=== PATIENT | female | born 1970 | race Hispanic/Latino ===

== ENCOUNTER 2017-05-07 12:14 | Emergency (ER) | payer OTHER ==
[2017-05-07 13:13] LABS: Basophils % (Auto) 0.6 % (0.0-1.8); Eosinophils % (Auto) 0.4 % (0.0-4.3); Hemoglobin 13.9 gm/dl (10.1-14.3); Mean Corpuscular HGB Conc 34 % (30-34); Mean Corpuscular Hemoglobin 32 pg (28-32); Mean Corpuscular Volume 94 fl (79-97); Platelet Count 188 K/mm3 (140-440); Red Blood Count 4.37 M/mm3 (3.65-5.03); Red Cell Distribution Width 13.1 % (13.2-15.2); White Blood Count 14.7 K/mm3 (4.5-11.0)
[2017-05-07 13:33] LABS: Anion Gap 20 mmol/L; BUN/Creatinine Ratio 13; Blood Urea Nitrogen 8 mg/dL (7-17); Calcium 9.1 mg/dL (8.4-10.2); Carbon Dioxide 24 mmol/L (22-30); Chloride 99.5 mmol/L (98-107); Glucose 95 mg/dL (65-100); Potassium 4.1 mmol/L (3.6-5.0); Sodium 139 mmol/L (137-145)
[2017-05-07 13:34] LABS: Urine Drugs of Abuse Note Disclamer
[2017-05-07 13:43] LABS: Bilirubin,Urine NEG (Negative); Blood,Urine NEG (Negative); Ketones,Urine NEG (Negative); Leukocyte Esterase,Urine NEG (Negative); Mucus,Urine FEW /HPF; Nitrite,Urine NEG (Negative); Protein,Urine <15 mg/dL mg/dL (Negative)
[2017-05-07] MEDS ORDERED: ASPIRIN PO ONE (15:05)
[2017-05-07] MEDS ORDERED: NITRO-BID 2% TP ONE (15:05)
--- NOTE | 2017-05-07 15:15 | Emergency Department Report ---
HPI - General Chief Complaint: Chest Pain Time Seen by Provider: 05/07/17 14:57 - HPI HPI: Room 18 The patient is a 46-year-old female presenting with a chief complaint of chest pain. Patient states for 2 months she's had intermittent substernal chest pain associated with shortness of breath, nausea and diaphoresis. Patient also states she's had a left upper extremity paresthesia with her chest pain. Patient doesn't at the crack cocaine use and states she last used last night. The patient states her last stress test occurred approximately one year ago but she has never had a cardiac catheterization Location: Chest, see above Duration: 2 months Quality: Pain Severity: Currently 0/10 Modifying factors: [see above] Context: [see above] Mode of transportation: [not driving] ED Past Medical Hx - Past Medical History Previous Medical History?: Yes Hx of Cancer: Yes (Cervical) Hx Headaches / Migraines: Yes Hx Psychiatric Treatment: Yes (Domestic PTSD) Additional medical history: Hepatits C, Memory loss - Surgical History Past Surgical History?: Yes Hx Appendectomy: Yes Additional Surgical History: Partial hysterectomy, Back surgery - Family History Family history: no significant - Social History Smoking Status: Current Every Day Smoker (1 pack per day) Substance Use Type: Cocaine, Marijuana, Non Opiate Pain ED Review of Systems ROS: Stated complaint: CHEST PAIN Other details as noted in HPI Constitutional: diaphoresis Respiratory: shortness of breath Cardiovascular: chest pain Gastrointestinal: nausea. denies: vomiting Neurological: paresthesias Physical Exam - Physical Exam Vital Signs: Vital Signs 05/07/17 12:28 Temperature 97.9 F Pulse Rate 115 H Respiratory 22 Rate Blood Pressure 135/86 O2 Sat by Pulse 97 Oximetry Physical Exam: GENERAL: The patient is well-developed well-nourished female sitting on stretcher not appearing to be in acute distress. [] HEENT: Normocephalic. Atraumatic. Extraocular motions are intact. Patient has moist mucous membranes. NECK: Supple. Trachea midline CHEST/LUNGS: Clear to auscultation. There is no respiratory distress noted. HEART/CARDIOVASCULAR: Regular. There is no tachycardia. There is no gallop rub or murmur. ABDOMEN: Abdomen is soft, nontender. Patient has normal bowel sounds. There is no abdominal distention. SKIN: There is no rash. There is no edema. There is no diaphoresis. NEURO: The patient is awake, alert, and oriented. The patient is cooperative. The patient has normal speech MUSCULOSKELETAL: There is no evidence of acute injury. ED Course Vital Signs 05/07/17 12:28 Temperature 97.9 F Pulse Rate 115 H Respiratory 22 Rate Blood Pressure 135/86 O2 Sat by Pulse 97 Oximetry ED Medical Decision Making - Lab Data Result diagrams: 05/07/17 12:55 05/07/17 12:55 Laboratory Last Values WBC 14.7 K/mm3 (4.5-11.0) H 05/07/17 12:55 RBC 4.37 M/mm3 (3.65-5.03) 05/07/17 12:55 Hgb 13.9 gm/dl (10.1-14.3) 05/07/17 12:55 Hct 41.0 % (30.3-42.9) 05/07/17 12:55 MCV 94 fl (79-97) 05/07/17 12:55 MCH 32 pg (28-32) 05/07/17 12:55 MCHC 34 % (30-34) 05/07/17 12:55 RDW 13.1 % (13.2-15.2) L 05/07/17 12:55 Plt Count 188 K/mm3 (140-440) 05/07/17 12:55 Lymph % (Auto) 19.6 % (13.4-35.0) 05/07/17 12:55 [place] % (Auto) 5.0 % (0.0-7.3) 05/07/17 12:55 Eos % (Auto) 0.4 % (0.0-4.3) 05/07/17 12:55 Baso % (Auto) 0.6 % (0.0-1.8) 05/07/17 12:55 Lymph # 2.9 K/mm3 (1.2-5.4) 05/07/17 12:55 [place] # 0.7 K/mm3 (0.0-0.8) 05/07/17 12:55 Eos # 0.1 K/mm3 (0.0-0.4) 05/07/17 12:55 Baso # 0.1 K/mm3 (0.0-0.1) 05/07/17 12:55 Seg Neutrophils % 74.4 % (40.0-70.0) H 05/07/17 12:55 Seg Neutrophils # 10.9 K/mm3 (1.8-7.7) H 05/07/17 12:55 Sodium 139 mmol/L (137-145) 05/07/17 12:55 Potassium 4.1 mmol/L (3.6-5.0) 05/07/17 12:55 Chloride 99.5 mmol/L (98-107) 05/07/17 12:55 Carbon Dioxide 24 mmol/L (22-30) 05/07/17 12:55 Anion Gap 20 mmol/L 05/07/17 12:55 BUN 8 mg/dL (7-17) 05/07/17 12:55 Creatinine 0.6 mg/dL (0.7-1.2) L 05/07/17 12:55 Estimated GFR > 60 ml/min 05/07/17 12:55 BUN/Creatinine Ratio 13 % 05/07/17 12:55 Glucose 95 mg/dL (65-100) 05/07/17 12:55 Calcium 9.1 mg/dL (8.4-10.2) 05/07/17 12:55 Troponin T < 0.010 ng/mL (0.00-0.029) 05/07/17 12:55 Urine Color Yellow (Yellow) 05/07/17 13:00 Urine Turbidity Clear (Clear) 05/07/17 13:00 Urine pH 6.0 (5.0-7.0) 05/07/17 13:00 Ur Specific Perr[place] 1.015 (1.003-1.030) 05/07/17 13:00 Urine Protein <15 mg/dl mg/dL (Negative) 05/07/17 13:00 Urine Glucose (UA) Neg mg/dL (Negative) 05/07/17 13:00 Urine Ketones Neg mg/dL (Negative) 05/07/17 13:00 Urine Blood Neg (Negative) 05/07/17 13:00 Urine Nitrite Neg (Negative) 05/07/17 13:00 Urine Bilirubin Neg (Negative) 05/07/17 13:00 Urine Urobilinogen 2.0 mg/dL (<2.0) 05/07/17 13:00 Ur Leukocyte Esterase Neg (Negative) 05/07/17 13:00 Urine WBC (Auto) 1.0 /HPF (0.0-6.0) 05/07/17 13:00 Urine RBC (Auto) 6.0 /HPF (0.0-6.0) 05/07/17 13:00 U Epithel Cells (Auto) 1.0 /HPF (0-13.0) 05/07/17 13:00 Urine Mucus Few /HPF 05/07/17 13:00 Urine Opiates Screen Presumptive negative 05/07/17 13:00 Urine Methadone Screen Presumptive negative 05/07/17 13:00 Ur Barbiturates Screen Presumptive negative 05/07/17 13:00 Ur Phencyclidine Scrn Presumptive negative 05/07/17 13:00 Ur Amphetamines Screen Presumptive negative 05/07/17 13:00 U Benzodiazepines Scrn Presumptive negative 05/07/17 13:00 Urine Cocaine Screen Presumptive negative 05/07/17 13:00 U Marijuana (THC) Screen Presumptive negative 05/07/17 13:00 Drugs of Abuse Note Disclamer 05/07/17 13:00 - EKG Data -: EKG Interpreted by Me EKG shows normal: sinus rhythm Rate: normal - EKG Data When compared to previous EKG there are: previous EKG unavailable Interpretation: nonspecific ST-T wave migdalia (T-wave inversion in lead V2) - Radiology Data Radiology results: image reviewed (chest x-ray) interpreted by me: Chest x-ray-no focal infiltrates, no pneumothorax - Differential Diagnosis ACS, Prinzmetal's angina, GERD, pericarditis Critical care attestation.: If time is entered above; I have spent that time in minutes in the direct care of this critically ill patient, excluding procedure time. ED Disposition Clinical Impression: Chest pain Disposition: - OP ADMIT IP TO THIS HOSP Is pt being admited?: Yes Does the pt Need Aspirin: Yes Condition: Fair Instructions: Chest Pain (ED) Referrals: SAMANTHA CH MD [Primary Care Provider] - 3-5 Days Time of Disposition: 15:21 (hospitalist notified (Dr Stafford))
[2017-05-07] MEDS ORDERED: LEVAQUIN 750MG/150ML 750 MG/150 ML BAG IV ONE (15:25)
--- NOTE | 2017-05-07 15:27 | History and Physical Report ---
History of Present Illness Chief complaint: My chest hurts History of present illness: 46 YO Female presents to ED for evaluation. Pt complains of chest pain. Patient states for 2 months she has experienced substernal chest pain associated with shortness of breath, nausea and diaphoresis. Patient also states she's had a left upper extremity paresthesia with her chest pain. Pt seen and evaluated in ED. Pt underwent cardiac enzyme, ekg, and telemetry evaluation which was not indicative of cardiac ischemia. D dimer was also normal. Pt medically optimized and back to usual state of health. Pt discharged home and instructed to f/u with pcp 1wk. Past History Past Medical History: cancer, hepatitis, migraines Past Surgical History: appendectomy, hysterectomy, Other (back surgery) Social history: single, smoking, other (cocaine abuse) Family history: no significant family history (reviewed) Medications and Allergies Allergies Allergy/AdvReac Type Severity Reaction Status Date / Time Penicillins Allergy Unknown Verified 05/07/17 12:28 Home Medications Medication Instructions Recorded Confirmed Last Taken Type Ciprofloxacin [Ciprofloxacin ORAL 500 mg PO Q12H #14 ml 05/07/17 Unknown Rx LIQ] Active Meds: Active Medications Levofloxacin/Dextrose (Levaquin 750mg/150ml) 750 mg in 150 mls @ 100 mls/hr IV ONCE ONE Stop: 05/07/17 16:54 Review of Systems Constitutional: no weight loss, no weight gain, no fever, no chills Ears, nose, mouth and throat: no ear pain, no ear discharge, no tinnitis, no decreased hearing, no nose pain Breasts: no change in shape, no swelling, no mass Cardiovascular: chest pain, no orthopnea, no palpitations, no rapid/irregular heart beat, no edema, no syncope, no lightheadedness, no shortness of breath Respiratory: no cough, no cough with sputum, no excessive sputum, no hemoptysis , no shortness of breath Gastrointestinal: no nausea, no vomiting, no diarrhea Genitourinary Female: no pelvic pain, no flank pain, no menorrhagia, no dysuria Rectal: no pain, no incontinence, no bleeding Musculoskeletal: no neck stiffness, no neck pain, no shooting arm pain Integumentary: no rash, no pruritis, no redness, no sores, no wounds Neurological: no head injury, no transient paralysis, no paralysis, no weakness , no parathesias, no numbness, no tingling, no seizures Psychiatric: no anxiety, no memory loss, no change in sleep habits, no sleep disturbances, no insomnia, no hypersomnia, no change in appetite Endocrine: no cold intolerance, no heat intolerance, no polyphagia, no excessive thirst, no polydipsia, no polyuria Hematologic/Lymphatic: no easy bruising, no easy bleeding Allergic/Immunologic: no urticaria, no allergic rhinitis, no wheezing Exam - Constitutional Vitals: Temp Pulse Resp BP Pulse Ox 97.9 F 77 22 135/86 97 05/07/17 12:28 05/07/17 15:18 05/07/17 12:28 05/07/17 12:28 05/07/17 12:28 General appearance: Present: no acute distress, well-nourished - EENT Eyes: Present: PERRL ENT: hearing intact, clear oral mucosa - Neck Neck: Present: supple, normal ROM - Respiratory Respiratory effort: normal Respiratory: bilateral: CTA - Cardiovascular Heart Sounds: Present: S1 & S2. Absent: rub, click - Extremities Extremities: pulses symmetrical, No edema Peripheral Pulses: within normal limits - Abdominal General gastrointestinal: Present: soft, non-tender, non-distended, normal bowel sounds Female genitourinary: Present: normal - Integumentary Integumentary: Present: clear, warm, dry - Musculoskeletal Musculoskeletal: gait normal, strength equal bilaterally - Psychiatric Psychiatric: appropriate mood/affect, intact judgment & insight - Neurologic Neurologic: CNII-XII intact, moves all extremities Results - Labs CBC & Chem 7: 05/07/17 12:55 05/07/17 12:55 Labs: Abnormal lab results 05/07/17 05/07/17 Range/Units 12:55 12:55 WBC 14.7 H (4.5-11.0) K/mm3 RDW 13.1 L (13.2-15.2) % Seg Neutrophils % 74.4 H (40.0-70.0) % Seg Neutrophils # 10.9 H (1.8-7.7) K/mm3 Creatinine 0.6 L (0.7-1.2) mg/dL Assessment and Plan - Patient Problems (1) Atypical chest pain Status: Acute Plan to address problem: cardiac enzymes, ekg, telemetry, d dimer, ppi therapy, (2) GERD (gastroesophageal reflux disease) Status: Acute Plan to address problem: ppi therapy
--- NOTE | 2017-05-07 16:04 | XRay Report ---
FINAL REPORT EXAM: XR CHEST 1V AP HISTORY: chest pain TECHNIQUE: Upright portable AP chest x-ray Comparison: None FINDINGS: Heart size is upper limits normal. The lungs are mildly hyperlucent with flattened hemidiaphragms. There is ill-defined left lower lobe density which may represent focal infiltrate/consolidation. There are bilateral prominent nipple shadows. There is prominent bilateral anterior 1st rib ends and global osteopenia. IMPRESSION: Possible left lower lobe pneumonia. Chest x-ray appears advanced for the chronologic age of 46 years. There appears to be emphysema and global osteopenia. Recommend follow-up chest x-ray following treatment.
[2017-05-07] MEDS ORDERED: TYLENOL PO ONE (16:42)
[2017-05-07 17:58] VITALS: BP 118/70
== END 2017-05-07 17:57 | disposition admitted as inpatient to this hospital (09) ==
LOC: ED 12:14
DX: R07.2 Precordial pain (principal); R11.0 Nausea; G43.909 Migraine, unspecified, not intractable, without status migrainosus; Z85.41 Personal history of malignant neoplasm of cervix uteri; F12.10 Cannabis abuse, uncomplicated; F14.10 Cocaine abuse, uncomplicated; F17.200 Nicotine dependence, unspecified, uncomplicated; Z98.890 Other specified postprocedural states
CPT/HCPCS: 36415; 71010; 80048; 80307; 81001; 84484; 85025; 85379; 93005; 93010; 96365; 99285; J1956

== ENCOUNTER 2017-05-09 08:27 | Emergency (ER) | payer OTHER ==
--- NOTE | 2017-05-09 09:32 | Emergency Department Report ---
Chief Complaint: Psych Stated Complaint: MENTAL HEALTH EVALUATION Time Seen by Provider: 05/09/17 09:32 - HPI History of Present Illness: Patient here she appears very tearful and asked him to see and speak with someone to get some help. She said "I will elect to get my life back on track" . Patient is homeless and was seen here 2 days ago. She has a history of drug use. She says that she would like to get help with staying off drugs and also to get referrals where she can get a place to stay. Patient denies any suicide or homicide ideation. She specifically ask that she would like to go to the [place]. She says she is having pain 8 out of 10 from body ache and. Denies any cough, wheezing, shortness of breath, chest pain she says she's been walking around a lot. Pain is achy. No [id number] medication taken. Patient has been a sick PTSD, hepatitis C, migraine, memory loss. - ROS Review of Systems: All systems is negative unless stated in HPI above . - Exam Vital Signs: Vital Signs 05/09/17 09:07 Temperature 97.7 F Pulse Rate 102 H Respiratory 18 Rate Blood Pressure 105/70 O2 Sat by Pulse 98 Oximetry Physical Exam: Gen.: This is a 46-year-old female that looks disheveled but in no acute distress. Psych: Appears morose, denies suicide or homicide ideation. Denies seeing things or hearing things. Patient tearful MSE screening note: Focused history and physical exam performed. Due to findings the following was ordered: ED Medical Decision Making - Medical Decision Making MDM: Patient screened by provider in triage area. Appropriate protocol initiated and patient to be seen in main ED by ED Disposition for MSE Condition: Stable Referrals: PRIMARY CARE, [Primary Care Provider] - 3-5 Days
[2017-05-09 09:47] LABS: Basophils % (Auto) 0.5 % (0.0-1.8); Eosinophils % (Auto) 0.3 % (0.0-4.3); Hematocrit 42.6 % (30.3-42.9); Hemoglobin 14.1 gm/dl (10.1-14.3); Mean Corpuscular HGB Conc 33 % (30-34); Mean Corpuscular Hemoglobin 32 pg (28-32); Mean Corpuscular Volume 95 fl (79-97); Platelet Count 185 K/mm3 (140-440); Red Blood Count 4.47 M/mm3 (3.65-5.03); Red Cell Distribution Width 13.1 % (13.2-15.2); White Blood Count 11.4 K/mm3 (4.5-11.0)
[2017-05-09 10:03] LABS: Anion Gap 19 mmol/L; BUN/Creatinine Ratio 28; Blood Urea Nitrogen 14 mg/dL (7-17); Calcium 9.5 mg/dL (8.4-10.2); Carbon Dioxide 21 mmol/L (22-30); Chloride 105.9 mmol/L (98-107); Glucose 95 mg/dL (65-100); Potassium 4.2 mmol/L (3.6-5.0); Sodium 142 mmol/L (137-145)
[2017-05-09 11:53] LABS: Urine Drugs of Abuse Note Disclamer
[2017-05-09 12:03] LABS: Bilirubin,Urine NEG (Negative); Blood,Urine SM (Negative); Ketones,Urine 20 mg/dL (Negative); Leukocyte Esterase,Urine NEG (Negative); Mucus,Urine FEW /HPF; Nitrite,Urine NEG (Negative); Protein,Urine <15 mg/dL mg/dL (Negative)
[2017-05-09] MEDS ORDERED: TYLENOL PO ONE (20:56)
[2017-05-09] MEDS ORDERED: TORADOL IM ONE (20:56)
--- NOTE | 2017-05-09 21:13 | Emergency Department Report ---
ED General Adult HPI - General Chief complaint: Psych Stated complaint: MENTAL HEALTH EVALUATION Time Seen by Provider: 05/09/17 09:32 Source: patient, RN notes reviewed, old records reviewed Mode of arrival: Ambulatory Limitations: No Limitations - History of Present Illness Initial comments: This is a 46-year-old female who is previously unknown to this provider. Patient endorsed a past medical history of PTSD, hepatitis C, migraine. Patient is apparently homeless. Patient presents to the ER today, complaining to me of essential chest wall pain. She reports the pain has been there for 2 weeks, then she states has been there for 2 months. She denies vomiting, diaphoresis, she reports intermittent left upper extremity tingling. Denies recent aspirin ingestion, denies recent cocaine use, no pulmonary embolus or DVT risk factors. She is not homicidal, she is not suicidal. She reports no access to guns or firearms. To me, she makes no complaint of "wanted to get my life back on track." She does indicate that she would like to speak to a adult protective caseworker regarding her undomiciled situation. Denies cough and mucus production -: Gradual, week(s), month(s) Location: chest, left, upper extremity Radiation: extremity Quality: aching Consistency: intermittent Improves with: none Worsens with: none Associated Symptoms: chest pain. denies: cough, diaphoresis, fever/chills, loss of appetite, malaise, nausea/vomiting, rash, shortness of breath, syncope, weakness - Related Data Previous Rx's Medication Instructions Recorded Last Taken Type Ciprofloxacin [Ciprofloxacin ORAL 500 mg PO Q12H #14 ml 05/07/17 Unknown Rx LIQ] Aspirin [Aspirin BABY CHEW TAB] 81 mg PO QDAY #30 tab.chew 05/09/17 Unknown Rx Allergies Allergy/AdvReac Type Severity Reaction Status Date / Time Penicillins Allergy Unknown Verified 05/07/17 12:28 ED Review of Systems ROS: Stated complaint: MENTAL HEALTH EVALUATION Other details as noted in HPI ED Past Medical Hx - Past Medical History Previous Medical History?: Yes Hx Headaches / Migraines: Yes Hx Psychiatric Treatment: Yes (Domestic PTSD) Additional medical history: Hepatits C, Memory loss - Surgical History Past Surgical History?: Yes Hx Appendectomy: Yes Additional Surgical History: Partial hysterectomy, Back surgery - Social History Smoking Status: Current Every Day Smoker Substance Use Type: Alcohol, Cocaine, Marijuana - Medications Home Medications: Home Medications Medication Instructions Recorded Confirmed Last Taken Type Ciprofloxacin [Ciprofloxacin ORAL 500 mg PO Q12H #14 ml 05/07/17 Unknown Rx LIQ] Aspirin [Aspirin BABY CHEW TAB] 81 mg PO QDAY #30 tab.chew 05/09/17 Unknown Rx ED Physical Exam - General Limitations: No Limitations General appearance: alert, in no apparent distress - Head Head exam: Present: atraumatic, normocephalic - Eye Eye exam: Present: normal appearance, EOMI. Absent: nystagmus - ENT ENT exam: Present: normal exam, normal orophraynx, mucous membranes moist, normal external ear exam - Neck Neck exam: Present: normal inspection, full ROM - Respiratory Respiratory exam: Present: normal lung sounds bilaterally. Absent: respiratory distress, chest wall tenderness - Cardiovascular Cardiovascular Exam: Present: regular rate, normal rhythm, normal heart sounds. Absent: bradycardia, tachycardia, irregular rhythm, systolic murmur, diastolic murmur, rubs, gallop - GI/Abdominal GI/Abdominal exam: Present: soft, normal bowel sounds. Absent: distended, tenderness, guarding, rebound, rigid, pulsatile mass - Extremities Exam Extremities exam: Present: normal inspection, full ROM, normal capillary refill. Absent: pedal edema, joint swelling, calf tenderness - Back Exam Back exam: Present: normal inspection, full ROM. Absent: tenderness, CVA tenderness (R), paraspinal tenderness, vertebral tenderness - Neurological Exam Neurological exam: Present: alert, oriented X3, CN II-XII intact, normal gait, other (Extraocular movements intact. Tongue midline. No facial droop. Facial sensation intact to light touch in the V1, V2, V3 distribution bilaterally. 5 and 5 strength in 4 extremities.. Sensation is intact to light touch in 4 extremities.). Absent: motor sensory deficit - Psychiatric Psychiatric exam: Present: anxious. Absent: homicidal ideation, suicidal ideation - Skin Skin exam: Present: warm, dry, intact, normal color. Absent: rash ED Course Vital Signs 05/09/17 05/09/17 09:07 21:29 Temperature 97.7 F 98.6 F Pulse Rate 102 H 98 H Respiratory 18 18 Rate Blood Pressure 105/70 Blood Pressure 113/81 [Left] O2 Sat by Pulse 98 98 Oximetry - Reevaluation(s) Reevaluation #1: 05/09/17 22:13 Differential diagnosis, including without limited to: Homelessness, pneumonia, mood disorder, acute coronary syndrome, pneumonia, anxiety Assessment and plan: 46-year-old female who is undomiciled, with multiple complaints. She does not require a 1013, she walks with a steady gait, and she is clinically sober. Troponins have been negative multiple times over the past few days, her EKG shows high left ventricular voltage, but is otherwise unchanged multiple times, recent low risk by ELVA score, low risk by heart score , low risk by well's criteria, has no pulmonary embolus or DVT risk factors. Her tachycardia resolved, x-ray of the chest was negative for acute findings today (has no symptoms to suggest pneumonia,) the patient was observed in the ER for a prolonged period of time without clinical decompensation. Objectively speaking, patient at low risk for major adverse cardiac event, patient will be discharged once her second troponin comes back as negative, which I anticipate it will, and patient can wait in the waiting room to be seen by case management in the morning. She does not have any objective indication of psychiatric decompensation at this time, and does not require emergent psychiatric consultation or evaluation. Reevaluation #2: 05/09/17 22:30 Patient eating without difficulty, repeat EKG is unremarkable and unchanged. Reevaluation #3: 05/09/17 22:53 Troponin negative 2, resting comfortably, no distress. ED Medical Decision Making - Lab Data Result diagrams: 05/09/17 09:31 05/09/17 09:31 Critical care attestation.: If time is entered above; I have spent that time in minutes in the direct care of this critically ill patient, excluding procedure time. ED Disposition Clinical Impression: Chest pain, Homelessness Disposition: DC-01 TO HOME OR SELFCARE Is pt being admited?: No Does the pt Need Aspirin: No Condition: Stable Instructions: Chest Pain (ED) Additional Instructions: Take the aspirin as directed/recommended. There is no need to take the ciprofloxacin prescription that was prescribed fever a few days ago, as x-ray of the chest today demonstrates no evidence of pneumonia. Follow up with either the listed primary care doctor or special education curriculum specialist within the next 5 -7 days for your chest pain. Please return anytime after 7:30 in the morning, Monday through Monday, to speak to the hospital adult protective caseworker or social service assistant regarding your homelessness. Please return to the ER right away with new pain, worsened pain, migration of pain, fevers, chills, lethargy, irritability, projectile vomiting, change in mental status, confusion, inability to tolerate liquid feeds. Prescriptions: Aspirin [Aspirin BABY CHEW TAB] 81 mg PO QDAY #30 tab.chew Referrals: PRIMARY CARE, [Primary Care Provider] - 3-5 Days [facility] [Provider Group] - 3-5 Days [facility] [Provider Group] - 3-5 Days [facility] [Provider Group] - 3-5 Days [facility] [Provider Group] - 3-5 Days
[2017-05-09 21:29] VITALS: BP 113/81
--- NOTE | 2017-05-09 22:25 | XRay Report ---
FINAL REPORT PROCEDURE: Chest. TECHNIQUE: PA and lateral views. HISTORY: Chest pain. COMPARISON: Chest 05/07/2017. FINDINGS: The heart and mediastinum appear normal. The lungs are clear except for possible previous granulomatous disease. There are no pleural effusions. The soft tissues are unremarkable. The regional skeleton appears intact. IMPRESSION: No evidence of acute disease.
== END 2017-05-09 23:22 | disposition home or self-care (01) ==
LOC: ED 08:27
DX: R07.89 Other chest pain (principal); Z59.0 Homelessness; G43.909 Migraine, unspecified, not intractable, without status migrainosus; F12.10 Cannabis abuse, uncomplicated; F14.10 Cocaine abuse, uncomplicated; F17.200 Nicotine dependence, unspecified, uncomplicated; Z88.0 Allergy status to penicillin
CPT/HCPCS: 36415; 71020; 80048; 80307; 81001; 82550; 84484; 85025; 93005; 93010; 96372; 99284; G0480; J1885; 80320

== ENCOUNTER 2018-01-19 08:25 | Emergency (ER) | payer SELFPAY ==
[2018-01-19 12:42] LABS: Basophils % (Auto) 0.6 % (0.0-1.8); Eosinophils # (Auto) 0.3 K/mm3 (0.0-0.4); Eosinophils % (Auto) 3.4 % (0.0-4.3); Hematocrit 34.4 % (30.3-42.9); Hemoglobin 11.9 gm/dl (10.1-14.3); Lymphocytes # (Auto) 2.2 K/mm3 (1.2-5.4); Lymphocytes % (Auto) 28.6 % (13.4-35.0); Mean Corpuscular HGB Conc 35 % (30-34); Mean Corpuscular Hemoglobin 32 pg (28-32); Mean Corpuscular Volume 92 fl (79-97); Monocytes # (Auto) 1.2 K/mm3 (0.0-0.8); Monocytes % (Auto) 14.7 % (0.0-7.3); Platelet Count 148 K/mm3 (140-440); Red Blood Count 3.74 M/mm3 (3.65-5.03)
[2018-01-19 13:03] LABS: BUN/Creatinine Ratio 32; Blood Urea Nitrogen 19 mg/dL (7-17); Calcium 9.1 mg/dL (8.4-10.2); Hemolysis Index 6
--- NOTE | 2018-01-19 13:54 | Emergency Department Report ---
ED Psych HPI - General Chief Complaint: Psych Stated Complaint: ALTERED MENTAL STATUS Time Seen by Provider: 01/19/18 13:42 Source: EMS Mode of arrival: Stretcher - History of Present Illness Initial Comments: 47-year-old female unknown medical history brought to the emergency room [place]. Upon initial arrival per nurse patient was in catatonic state unable to get any information from patient. At this time during my exam patient sitting up in bed looking around, making eye contact with me, however not answering my questions. Patient then got up to the restroom. MD Complaint: altered mental status -: unknown - Related Data Previous Rx's Medication Instructions Recorded Last Taken Type Ciprofloxacin [Ciprofloxacin ORAL 500 mg PO Q12H #14 ml 05/07/17 Unknown Rx LIQ] Aspirin [Aspirin BABY CHEW TAB] 81 mg PO QDAY #30 tab.chew 05/09/17 Unknown Rx Allergies Allergy/AdvReac Type Severity Reaction Status Date / Time Penicillins Allergy Unknown Verified 05/07/17 12:28 ED Review of Systems ROS: Stated complaint: ALTERED MENTAL STATUS Other details as noted in HPI Comment: unobtainable, pt not answering questions ED Past Medical Hx - Past Medical History Hx Headaches / Migraines: Yes Hx Psychiatric Treatment: Yes (Domestic PTSD) Additional medical history: Hepatits C, Memory loss - Surgical History Hx Appendectomy: Yes Additional Surgical History: Partial hysterectomy, Back surgery - Social History Smoking Status: Current Every Day Smoker Substance Use Type: Alcohol, Cocaine, Marijuana - Medications Home Medications: Home Medications Medication Instructions Recorded Confirmed Last Taken Type Ciprofloxacin [Ciprofloxacin ORAL 500 mg PO Q12H #14 ml 05/07/17 Unknown Rx LIQ] Aspirin [Aspirin BABY CHEW TAB] 81 mg PO QDAY #30 tab.chew 05/09/17 Unknown Rx ED Physical Exam - General Limitations: Altered Mental Status General appearance: alert, in no apparent distress, other (frail) - Head Head exam: Present: atraumatic - Eye Eye exam: Present: normal appearance - Neck Neck exam: Present: normal inspection, full ROM - Respiratory Respiratory exam: Present: normal lung sounds bilaterally - Cardiovascular Cardiovascular Exam: Present: regular rate, normal rhythm - GI/Abdominal GI/Abdominal exam: Present: soft. Absent: tenderness - Neurological Exam Neurological exam: Present: alert, normal gait, other (moves all extremities) - Psychiatric Psychiatric exam: Present: flat affect ED Course Vital Signs 01/19/18 08:25 Temperature 98.2 F Pulse Rate 90 Respiratory 16 Rate Blood Pressure 103/71 Blood Pressure 103/71 [Left] O2 Sat by Pulse 100 Oximetry - Reevaluation(s) Reevaluation #1: 01/19/18 15:19 Pt seen by mental health sales agent [employer] in ED. Unable to get any significant history from pt. Will refer to psychiatrist for consult. 01/19/18 16:22 Pt medically cleared for psych evaluation. ED Medical Decision Making - Lab Data Result diagrams: 01/19/18 12:28 01/19/18 12:28 Critical care attestation.: If time is entered above; I have spent that time in minutes in the direct care of this critically ill patient, excluding procedure time. ED Disposition Clinical Impression: Medical clearance for psychiatric admission Disposition: [id number] PSY HOSP/PSY UNIT Is pt being admited?: No Condition: Stable Referrals: PRIMARY CARE, [Primary Care Provider] - 3-5 Days
[2018-01-19 18:29] LABS: Bacteria,Urine 1+ /HPF (Negative); Bilirubin,Urine NEG (Negative); Blood,Urine NEG (Negative); Color,Urine Yellow (Yellow); Hyaline Casts,Urine 1 /LPF; Mucus,Urine FEW /HPF; Protein,Urine <15 mg/dL mg/dL (Negative)
[2018-01-19 18:39] LABS: Amphetamine Screen,Urine PRESUMPTIVE NEGATIVE; Benzodiazepines Screen,Urine PRESUMPTIVE NEGATIVE; Cannabinoid Screen,Urine PRESUMPTIVE NEGATIVE; Cocaine Screen,Urine PRESUMPTIVE NEGATIVE; Methadone Screen,Urine PRESUMPTIVE NEGATIVE; Opiate Screen,Urine PRESUMPTIVE NEGATIVE
--- NOTE | 2018-01-20 17:25 | Consultation ---
History of Present Illness - Reason for Consult Consult date: 01/20/18 Reason for consult: 101 - Chief Complaint Chief complaint: "I felt kind of lost." - History of Present Psychiatric Illness 47-year-old female brought to the emergency room [place]. She is on 1013 and was seen in the ER for psychiatric evaluation. She appeared suspicous and frequently paused before speaking. She would intermittently apologize for being rude. Her thought process is clearly disorganized. Speech is slow and hesitant. She will not confirm nor deny hallucinations. She acknowledged being in psychiatric hospitals previously but could not provide details. She talked about being on stelazine and abilify previously. She was familiar with names of meds, lithium, depakote, risperdal, and geodon. She stated that she initially wanted help and now wants to get her clothes and leave. Medications and Allergies Allergies Allergy/AdvReac Type Severity Reaction Status Date / Time Penicillins Allergy Unknown Verified 05/07/17 12:28 Home Medications Medication Instructions Recorded Confirmed Last Taken Type Ciprofloxacin [Ciprofloxacin ORAL 500 mg PO Q12H #14 ml 05/07/17 Unknown Rx LIQ] Aspirin [Aspirin BABY CHEW TAB] 81 mg PO QDAY #30 tab.chew 05/09/17 Unknown Rx Past psychiatric history - Past Medical History Past Medical History: other (unable to assess) - past Psychiatric treatment and history Psych: Psychosis - Social History Social history: other (unable to assess) Mental Status Exam - Vital signs Last Vital Signs Temp 99.0 F 01/19/18 19:20 Pulse 90 01/19/18 19:20 Resp 18 01/19/18 19:20 BP 103/57 01/19/18 19:20 Pulse Ox 97 01/19/18 19:20 - Exam Orientation: person Affect: agitated Mood: congruent with affect Thought content: paranoia, other (observed responding to internal stimuli) Thought Process: Disorganized Perceptions: other (responding to internal stimuli) Speech: slow Concentration: distractible Motor activity: normal Level of consciousness: alert Sleep Symptoms: Difficulty Falling Asleep Appetite: decreased Interaction: irritable Results Result Diagrams: 01/19/18 12:28 01/19/18 12:28 Abnormal lab results 01/19/18 Range/Units 18:15 Urine WBC (Auto) 7.0 H (0.0-6.0) /HPF All other labs normal. Assessment and Plan Assessment and plan: Impression: psychosis, unspecified UDS is negative Per the little information she provided, she is not treatment naive. Recommendation: Start zyprexa 5mg hs for psychosis. risk of adverse effects, including eps, explained. continue 1013 and transfer to inpatient psychiatric facility
[2018-01-21] MEDS ORDERED: TYLENOL PO PRN (22:41)
--- NOTE | 2018-01-21 23:09 | Progress Note ---
Subjective - Reason for Consult Consult date: 01/21/18 Reason for consult: Psychiatric Follow-up Evaluation - Chief Complaint Chief complaint: "Confused" Patient is a 47-year-old female brought to the emergency room [place]. She is on 1013 and was seen in the ER for psychiatric evaluation. Today the patient presents anxious and labile during the assessment. Patient states, " I'd like to leave as long as I have my freedom." Patient is very fidgety. She appears paranoid. She reports appropriate sleep and appetite. Patient is medication compliant. She denies side effects of her medication. Mental Status Exam - Vital signs Last Vital Signs Temp 98.5 F 01/21/18 13:20 Pulse 82 01/21/18 13:20 Resp 17 01/21/18 13:21 BP 100/60 01/21/18 13:20 Pulse Ox 98 01/21/18 13:21 - Exam Narrative exam: Mental Status Exam General Appearance: Causally Dressed-hospital gown Eye Contact: Intermittent Orientation: Alert and oriented x4 ( person, place, time, and situation) Attitude/Behavior: Evasive, guarded Sensorium: Distracted Psychomotor & Musculoskeletal Activity: Ambulatory Mood: "confused" Affect: Constricted Speech/Language: Normal rate and tone Thought Processes: Circumstantial Thought Content: Impoverished Perception: WNL-patient denies A/V/T hallucinations Concentration/Attention: Impaired Suicidal Ideations/Plan: Patient denies Homicidal Ideations/Plan: Patient denies Judgment: Variable Insight: Variable Assessment and Plan Impression: Unspecified Psychosis. Today the patient is anxious and labile during the assessment. She appears paranoid. She denies SI/HI's and A/V/T hallucinations. DDx: Bipolar DO with psychosis Recommendation/Plan: 1. Continue 1013 with placement to inpatient psychiatric services. 2. Continue Zyprexa 5mg po QHS for psychosis. Discussed metabolic side effects. 3. Will continue to monitor psychosis, mood, sleep, appetite, compliance, and side effects.
[2018-01-22] MEDS ORDERED: K-DUR PO ONE (12:13)
--- NOTE | 2018-01-22 12:23 | Progress Note ---
Subjective - Reason for Consult Consult date: 01/22/18 Reason for consult: Psychiatry Follow-up - Chief Complaint Chief complaint: "I have things to do" A 47-year-old white female brought to the emergency room [place]. She is on 1013 and was seen in the ER for psychiatric evaluation. Today the patient calm, but delusional and paranoid during the assessment. She stated that someone or something maybe after her. She would not elaborate more when asked. She acknowledged not sleeping prior to her admission to the ER. She denies SI/HI's and VH's. She would not confirm or deny AH's. Mental Status Exam - Vital signs Last Vital Signs Temp 98.5 F 01/21/18 13:20 Pulse 82 01/21/18 13:20 Resp 16 01/22/18 10:44 BP 100/60 01/21/18 13:20 Pulse Ox 100 01/22/18 10:44 - Exam Narrative exam: MSE: Appearance: calm Behavior: regular eye contact Speech: regular rate and tone Mood: "okay" Affect: dysphoric Thought Process: tangential Thought Content: denies SI/HI's and AVH's, delusional, paranoid Motor Activity: lying in bed Cognition: A/O x 3 Insight: poor Judgment: poor Assessment and Plan Impression: Unspecified Psychosis. Today the patient calm, but delusional and paranoid during the assessment. DDx: Bipolar DO with psychosis Recommendation/Plan: Continue 1012 with placement to inpatient psy services. Start Zyprexa 5 mg PO HS psychosis and Buspar 7.5 mg PO BID for anxiety. Discussed possible metabolic side effects of Zyprexa with the patient reference Zyprexa.
[2018-01-22] MEDS: BUSPAR PO SCH ×2 (13:03→23:41)
[2018-01-23] MEDS: BUSPAR PO SCH ×2 (10:12→23:13)
--- NOTE | 2018-01-23 10:52 | Progress Note ---
Subjective - Reason for Consult Consult date: 01/23/18 Reason for consult: Psychiatry Follow-up - Chief Complaint Chief complaint: "What can I do" Patient is a 47-year-old female brought to the emergency room [place]. She is on 1013 and was seen in the ER for psychiatric evaluation. Today the patient is uncooperative during the assessment. She would not answer questions asked of her. She did state, "What can I do" but would not finish asking the question. She would not confirm or deny SI's. No indications of side effects of her medications. Mental Status Exam - Vital signs Last Vital Signs Temp 98.2 F 01/23/18 10:00 Pulse 82 01/23/18 10:00 Resp 18 01/23/18 10:00 BP 95/58 01/23/18 10:00 Pulse Ox 100 01/23/18 10:00 - Exam Narrative exam: MSE: Appearance: uncooperative Behavior: regular eye contact Speech: regular rate and tone Mood: "I don't know" Affect: constricted Thought Process: unable to assess Thought Content: denies HI's and AVH's, will not confirm or deny SI's Motor Activity: lying in bed Cognition: A/O x 3 Insight: poor Judgment: poor Assessment and Plan Impression: Unspecified Psychosis. Today the patient is uncooperative during the assessment. DDx: Bipolar DO with psychosis Recommendation/Plan: Continue 1013 with placement to inpatient psy services. Continue Zyprexa 5 mg PO HS psychosis and Buspar 7.5 mg PO BID for anxiety. Discussed possible metabolic side effects of Zyprexa with the patient reference Zyprexa.
[2018-01-24] MEDS: BUSPAR PO SCH (10:11)
[2018-01-24 10:13] VITALS: BP 102/62
== END 2018-01-24 15:23 ==
LOC: EEVIPCON 08:25 → ED 08:25
DX: R41.82 Altered mental status, unspecified (principal); G43.909 Migraine, unspecified, not intractable, without status migrainosus; F43.10 Post-traumatic stress disorder, unspecified; F17.200 Nicotine dependence, unspecified, uncomplicated; F14.10 Cocaine abuse, uncomplicated; F12.10 Cannabis abuse, uncomplicated; Z90.711 Acquired absence of uterus with remaining cervical stump; Z90.49 Acquired absence of other specified parts of digestive tract; Z86.19 Personal history of other infectious and parasitic diseases; Z88.0 Allergy status to penicillin
CPT/HCPCS: 36415; 80048; 80307; 81001; 85025; 99285; G0480; 80320